=== PATIENT | female | born 1990 | race Caucasian/White ===

== ENCOUNTER 2017-11-10 13:11 | Outpatient (CLI) | payer OTHER, MEDICAID ==
[~2017-11-10] VITALS: Ht 180.3 cm; Wt 131.4 kg
[2017-11-10 13:18] VITALS: BP 139/71
[2017-11-21] MEDS ORDERED: IBUP-1222 PO (11:27)
[2017-11-21] MEDS ORDERED: PREN1TAB60 PO (11:29)
== END 2017-11-10 15:19 | disposition home or self-care (01) ==
LOC: LDOP 13:11
PROVIDERS: ATTEND Student in an Organized Health Care Education/Training Program
DX: O26.893 Other specified pregnancy related conditions, third trimester (principal); R10.9 Unspecified abdominal pain; Z3A.38 38 weeks gestation of pregnancy
CPT/HCPCS: 59025; 99201; G0463